=== PATIENT | female | born 1970 | race Caucasian/White ===

== ENCOUNTER 2017-10-26 06:28 | Day surgery (SDC) | payer OTHER ==
[2017-10-26] MEDS ORDERED: EPINEPHrine 0.1 MG/ML SYG (07:52)
[2017-10-26] MEDS ORDERED: PROPOFOL 100 ML (07:52)
[2017-10-26] MEDS ORDERED: ROCURONIUM 50 MG INJ (07:53)
[2017-10-26] MEDS ORDERED: DEXAMETHASONE 4 MG/ML 1 ML INJ (08:51)
[2017-10-26] MEDS ORDERED: LIDOCAINE 100 MG SYRINGE (08:51)
[2017-10-26] MEDS ORDERED: ONDANSETRON 4 MG INJ (08:53)
[2017-10-26] MEDS ORDERED: SUGAMMADEX SODIUM 200 MG/2 ML VIAL IV (08:53)
[2017-10-26] MEDS: BUPIVACAINE 0.5%/EPI (SDV) 30 ML INJ (09:02)
[2017-10-26] MEDS ORDERED: LABETALOL HCL 20MG INJ IV (09:30)
[2017-10-26] MEDS ORDERED: DIPHENHYDRAMINE 50 MG INJ IV (09:30)
[2017-10-26] MEDS ORDERED: HYDROmorphONE (0.2 MG/ML) 10ML SYG IV (09:30)
[2017-10-26] MEDS ORDERED: OXYCODONE/ACETAMINOPHEN (5/325) TAB PO ×2 (09:30)
[2017-10-26] MEDS ORDERED: FENTAnyl 50 MCG/ML VIAL IV ×3 (09:30)
[2017-10-26] MEDS ORDERED: EPHEDrine SULFATE 50 MG/5 ML SYG IV (09:30)
[2017-10-26] MEDS ORDERED: hydrALAzine 20 MG INJ IV (09:30)
[2017-10-26] MEDS ORDERED: METOCLOPRAMIDE 10 MG INJ IV (09:30)
[2017-10-26] MEDS ORDERED: MEPERIDINE 25 MG INJ IV (09:30)
[2017-10-26] MEDS: HYDROmorphONE (0.2 MG/ML) 10ML SYG IV ×2 (09:34→09:56)
[2017-10-26] MEDS: ONDANSETRON 4 MG INJ IV (09:34)
[2017-10-26] MEDS: KETOROLAC 30 MG INJ IV (09:59)
== END 2017-10-26 12:15 | disposition home or self-care (01) ==
LOC: SDS 06:28
DX: M23.200 Derangement of unspecified lateral meniscus due to old tear or injury, right knee (principal); M23.203 Derangement of unspecified medial meniscus due to old tear or injury, right knee; M94.261 Chondromalacia, right knee
CPT/HCPCS: 29880